=== PATIENT | female | born 1975 | race Caucasian/White ===

== ENCOUNTER 2016-12-17 17:21 | Emergency (ER) | payer MEDICAID ==
[2016-12-17 17:43] VITALS: BP 124/75
--- NOTE | 2016-12-17 17:56 | ED Physician Chart ---
Chief Complaint/HPI - Patient Information Allergies:: Allergies Allergy/AdvReac Type Severity Reaction Status Date / Time No Known Allergies Allergy Verified 07/03/16 15:28 Vitals:: Vital Signs - 8 hr 12/17/16 12/17/16 12/17/16 17:43 17:46 21:04 Temp 97.6 F 98.3 F HR 90 83 RR 17 16 BP 124/75 124/75 103/63 O2 Sat % 98 100 <Davi Rojas - Last Filed: 12/17/16 21:06> - Patient Information Date Seen:: 12/17/16 Time Seen:: 17:55 Chief Complaint:: LEFT LEG PAIN AND SWELLING History of Present Illness:: This 41 year old female presents with pain and swelling in the left thigh that began 3 days ago. It was similar to an episode of DVT that she experienced 6 months ago when she had a DVT diagnosed in the LLE 2 weeks after having a C- section. She was initially treated with coumadin and then switched over to Xarelto which she is still taking. She has no chest pain, respiratory distress or hemoptysis. She rates the extremity pain as a 3/10 severity that in relieved by ibuprofen. Allergies:: Allergies Allergy/AdvReac Type Severity Reaction Status Date / Time No Known Allergies Allergy Verified 07/03/16 15:28 Vitals:: Vital Signs - 8 hr 12/17/16 12/17/16 17:43 17:46 Temp 97.6 F HR 90 RR 17 BP 124/75 124/75 O2 Sat % 98 <Nemesio Morgan - Last Filed: 12/18/16 14:02> Review of Systems - Review of Systems General/Constitutional: No fever, No chills, No weight loss, No weakness, No diaphoresis, No loss of appetite Skin: No skin lesions, No rash, No bruising Eyes: No loss of vision, No diplopia ENT: No earache, No sore throat, No tinnitus Neck: No neck pain, No stiffness, No mass noted Cardio Vascular: No chest pain, No palpitations, No orthopnea Pulmonary: No SOB, No sputum, No wheezing (NO HEMOPTYSIS) GI: No nausea, No vomiting, No diarrhea, No pain, No hematemesis G/U: No dysuria, No frequency, No hematuria Surgical Services Director: No vaginal discharge, No abnormal vaginal bleed Musculoskeletal: No bone or joint pain, No back pain, No muscle pain Endocrine: No polyuria, No polydipsia Psychiatric: No prior psych history, No suicidal ideation Hematopoietic: No bruising, No lymphadenopathy Allergic/Immuno: No urticaria, No angioedema Neurological: No syncope, No focal symptoms, No paresthesia, No headache, No seizure, No dizziness, No confusion <Nemesio Morgan - Last Filed: 12/18/16 14:02> Past Medical History - Past Medical History Past Medical History: DVT/PE (6 MO AGO WITH DVT LT LOWER ECTREMITY AND ON XARELTO) Social History: Non Smoker, No Alcohol, No Drug Use, Surgical History: Psychiatricy History: None <Nemesio Morgan - Last Filed: 12/18/16 14:02> Family Medical History - Family Member Mother History Unknown: Yes Ethnicity: Living Status: Still Living Hx Family Hypertension: Yes Hx Family Diabetes: Yes <Nemesio Morgan - Last Filed: 12/18/16 14:02> Physical Exam - Physical Examination General/Constitutional: Awake, Well-developed, well-nourished, Alert, No distress, GCS 15, Non-toxic appearing, Ambulatory Head: Atraumatic Eyes: Lids, conjuctiva normal, PERRL, EOMI Skin: Nl inspection, No skin lesions, No ecchymosis, No lymphadenopathy ENMT: External ears, nose nl, Nasal exam nl, Lips, teeth, gums nl, Oropharynx nl , Tonsils nl Neck: Nontender, No JVD, No nuchal rigidity, No mass Respiratory: Nl effort/Exclusion, Clear to Auscultation, No Wheeze/Rhonchi/Rales Cardio Vascular: RRR, No murmur, gallop, rubs, NL S1 S2 Other Cardio Vascular comments:: Good pulses all 4 extremities. GI: No tenderness/rebounding/guarding, No organomegaly, No hernia, Normal BS's, Nondistended : No CVA tenderness Other Extremities comments:: Mild swelling of the LLE proximal to the knee. Tenderness over the medial aspect of the thigh. NO calf tenderness. NO erythema or warmth. Negative Bai's sigh. Neuro/Psych: Alert/oriented, Normal sensory exam, Judgement/insight normal, Mood normal, Normal gait Misc: Normal back, No paraspinal tenderness <Nemesio Morgan - Last Filed: 12/18/16 14:02> Labs/Radiology/EKG Results - Lab Results Results: Laboratory Tests 12/17/16 12/17/16 18:25 19:45 D-Dimer < 100 L Urine Test NEGATIVE <Davi Rojas - Last Filed: 12/17/16 21:06> - Lab Results Results: Laboratory Tests 12/17/16 18:25 D-Dimer < 100 L The d-dimer was less than 100 Ultrasound of LLE positive for DVT IN veins proximal to the knee. <Nemesio Morgan - Last Filed: 12/18/16 14:02> Assessment - Assessment General Assessment: CASE SUMMARY: This 41 year old female presents with discomfort in the area of the left medial thigh similar to that when she was diagnosed with DVT six months ago which came on shortly after she had a . US of the LLE confirmed that she had either residual or recurrent thrombosis in the LLE. The D-dimer was <100. A call was placed to Dr. Reed who had taken care of her at the time of the orginal diagnosis. The patient was passed on to dr. Nelson for discussion with Dr. Reed. The patient was discharded home to follow up with her primary care doctor this coming week. She was advised to return to the ED for any respiratory distress, chest pain or hemoptysis. <Nemesio Morgan - Last Filed: 12/18/16 14:02> ED Septic Shock - . Is Septic Shock (SBP<90, OR Lactate>4 mmol\L) present?: No - <6hrs of presentation: Vital Signs: Vital Signs - 8 hr 12/17/16 12/17/16 12/17/16 17:43 17:46 21:04 Temp 97.6 F 98.3 F HR 90 83 RR 17 16 BP 124/75 124/75 103/63 O2 Sat % 98 100 <Davi Rojas - Last Filed: 12/17/16 21:06> - <6hrs of presentation: Vital Signs: Vital Signs - 8 hr 12/17/16 12/17/16 17:43 17:46 Temp 97.6 F HR 90 RR 17 BP 124/75 124/75 O2 Sat % 98 <Nemesio Morgan - Last Filed: 12/18/16 14:02> Reassessment (Disposition) - Reassessment Reassessment:: Blood pressure was noted to be elevated over 120/80. There were no signs of hypertension. Discussed the findings with the patient and recommended that the patient follow up with the primary care physician regarding the elevated blood pressure. Patient is taking Xarelto. She has reduction of the previous DVT. She is asymptomatic. No fevers, no chest pain, no coughing. Patient will see her primary care physician on Monday. She will continue her Xarelto. Return to ER precautions given. Patient understands and agrees the plan. Reassessment Condition:: Improved - Diagnosis Diagnosis:: Chronic, left lower extremity DVT Elevated blood pressure the diagnosis of hypertension. - Aftercare/Follow up Instructions Aftercare/Follow-Up Instructions:: Counseled pt regarding lab results/diagnosis & need follow up, Refer to Discharge Instructions - Patient Disposition Discharge/Transfer:: Home Time:: 21:09 Condition at Disposition:: Improved <Davi Rojas - Last Filed: 12/17/16 21:06> ED Discharge Plan <Davi Rojas - Last Filed: 12/17/16 21:06> <Nemesio Morgan - Last Filed: 12/18/16 14:02> - Patient Disposition Admit/Discharge/Transfer: PT DISCHARGED HOME Condition at Disposition: Improved Instructions: Deep Vein Thrombosis
--- NOTE | 2016-12-18 11:22 | Diagnostic Imaging Report ---
Left lower extremity DVT study HISTORY: Pain and swelling, history of DVT COMPARISON: Left lower extremity venous Doppler study on 07/03/2016 Technique: Longitudinal and transverse sonographic images of the left lower extremity veins were obtained with doppler analysis. FINDINGS: There is thrombus visualized in the left common femoral and left superficial femoral veins. The left popliteal, posterior tibial, and peroneal veins are patent with no evidence of thrombus formation. IMPRESSION: Positive DVT study with thrombus visualized in the left common and femoral left superficial femoral veins. Referring team was informed of the findings at the time of the exam.
== END 2016-12-17 21:17 | disposition home or self-care (01) ==
LOC: ER 17:21
DX: I82.592 Chronic embolism and thrombosis of other specified deep vein of left lower extremity (principal); R03.0 Elevated blood-pressure reading, without diagnosis of hypertension
CPT/HCPCS: 36415-UA; 81025-TC; 85379-TC; 93971-TC-LT